=== PATIENT | female | born 1995 | race Caucasian/White ===

== ENCOUNTER 2022-10-20 22:42 | Emergency (ER) | payer BC ==
[~2022-10-20] VITALS: Ht 162.6 cm; Wt 111.1 kg
[2022-10-20 23:15] VITALS: BP 113/81; PULSE 82; RESP 16; TEMP 98; O2SAT 98
== END 2022-10-20 23:30 | disposition left against medical advice (07) ==
LOC: MED 22:42
DX: R07.9 Chest pain, unspecified (principal); Z53.21 Procedure and treatment not carried out due to patient leaving prior to being seen by health care provider
CPT/HCPCS: 99281